=== PATIENT | female | born 1975 | race Two or more races ===

== ENCOUNTER 2017-12-02 12:21 | Outpatient (CLI) | payer OTHER | END 2017-12-02 16:36 | disposition home or self-care (01) | LOC: RAD 12:21 | DX: M25.572 Pain in left ankle and joints of left foot (principal) ==

== ENCOUNTER 2019-02-05 14:15 | Outpatient (CLI) | payer OTHER | END 2019-02-05 14:25 | disposition home or self-care (01) | LOC: MRI 14:15 | DX: M25.561 Pain in right knee (principal); M25.562 Pain in left knee | CPT/HCPCS: 73721 ==

== ENCOUNTER 2019-06-06 08:42 | Outpatient (CLI) | payer OTHER | END 2019-06-06 08:56 | disposition home or self-care (01) | LOC: SONOGRAMA 08:42 → MAMO-SONO 08:45 → SONOGRAMA 08:56 | DX: E04.1 Nontoxic single thyroid nodule (principal); M54.2 Cervicalgia; M54.6 Pain in thoracic spine; M54.5 Low back pain ==

== ENCOUNTER 2019-09-19 07:29 | Outpatient (CLI) | payer OTHER | END 2019-09-19 08:01 | disposition home or self-care (01) | LOC: MRI 07:29 | DX: E22.8 Other hyperfunction of pituitary gland (principal); D38.2 Neoplasm of uncertain behavior of pleura | CPT/HCPCS: 70553 ==

== ENCOUNTER → 2020-06-18 | Outpatient (CLI) | payer OTHER | END | disposition home or self-care (01) | LOC: MRI 08:15 | PROVIDERS: ATTEND Orthopaedic Surgery | DX: N20.0 Calculus of kidney (principal); M25.562 Pain in left knee; M25.561 Pain in right knee | CPT/HCPCS: 73721 ==

== ENCOUNTER 2021-06-29 13:28 | Outpatient (CLI) | payer OTHER | END 2021-06-29 13:35 | disposition home or self-care (01) | LOC: MAMO-SONO 13:28 | PROVIDERS: ATTEND Internal Medicine Endocrinology, Diabetes & Metabolism | DX: E04.1 Nontoxic single thyroid nodule (principal); N64.4 Mastodynia ==

== ENCOUNTER 2021-08-03 10:57 | Outpatient (CLI) | payer OTHER | END 2021-08-03 11:09 | disposition home or self-care (01) | LOC: SONOGRAMA 10:57 | DX: D25.2 Subserosal leiomyoma of uterus (principal); N93.8 Other specified abnormal uterine and vaginal bleeding ==

== ENCOUNTER 2022-05-06 12:02 | Outpatient (CLI) | payer OTHER | END 2022-05-06 12:08 | disposition home or self-care (01) | LOC: SONOGRAMA 12:02 | PROVIDERS: ATTEND Specialist | DX: D25.1 Intramural leiomyoma of uterus (principal) ==

== ENCOUNTER 2022-07-14 14:36 | Outpatient (CLI) | payer OTHER | END 2022-07-14 14:41 | disposition home or self-care (01) | LOC: RAD 14:36 | PROVIDERS: ATTEND Orthopaedic Surgery Orthopaedic Surgery of the Spine | DX: Q67.5 Congenital deformity of spine (principal) ==

== ENCOUNTER → 2022-08-11 | Outpatient (CLI) | payer OTHER | END | disposition home or self-care (01) | LOC: SONOGRAMA 14:48 | PROVIDERS: ATTEND Obstetrics & Gynecology Obstetrics | DX: N13.0 Hydronephrosis with ureteropelvic junction obstruction (principal) ==

== ENCOUNTER 2022-09-20 07:50 | Outpatient (CLI) | payer OTHER | END 2022-09-20 07:56 | disposition home or self-care (01) | LOC: RAD 07:50 | PROVIDERS: ATTEND Obstetrics & Gynecology Obstetrics | DX: R07.89 Other chest pain (principal) ==

== ENCOUNTER 2024-02-09 06:53 | Outpatient (CLI) | payer OTHER | END 2024-02-09 07:00 | disposition home or self-care (01) | LOC: MAMO-SONO 06:53 | PROVIDERS: ATTEND Internal Medicine | DX: N64.9 Disorder of breast, unspecified (principal); E04.1 Nontoxic single thyroid nodule; R94.5 Abnormal results of liver function studies ==

== ENCOUNTER → 2025-04-29 | Emergency (ER) | payer OTHER ==
[~2025-04-29] VITALS: Ht 167.6 cm; Wt 59.0 kg
[~2025-04-29] MED LIST: SYNTHROID100 MCG PO
== END | disposition left against medical advice (07) ==
LOC: ER 15:41
DX: Z53.21 Procedure and treatment not carried out due to patient leaving prior to being seen by health care provider (principal)

== ENCOUNTER 2025-05-16 10:48 | Outpatient (CLI) | payer OTHER | END 2025-05-16 10:49 | disposition home or self-care (01) | LOC: MAMO-SONO 10:48 | PROVIDERS: ATTEND General Practice | DX: M25.60 Stiffness of unspecified joint, not elsewhere classified (principal); N63.10 Unspecified lump in the right breast, unspecified quadrant; N63.21 Unspecified lump in the left breast, upper outer quadrant; N64.4 Mastodynia; Z12.31 Encounter for screening mammogram for malignant neoplasm of breast; M81.0 Age-related osteoporosis without current pathological fracture; M41.80 Other forms of scoliosis, site unspecified ==